=== PATIENT | male | born 1965 | race Hispanic/Latino ===

== ENCOUNTER 2018-08-07 09:48 | Emergency (ER) | payer MEDICAID, OTHER ==
[2018-08-07 09:49] VITALS: BMI 26.7
[2018-08-07 09:57] VITALS: TEMP 98.2
--- NOTE | 2018-08-07 09:58 | ED PDOC ---
Arrival/HPI - General Historian: Patient - History of Present Illness Narrative History of Present Illness (Text): 52 y/o male with PMH of HTN, chronic back pain, ventral hernia repair presents to the ED with left elbow and right shoulder pain for the past month. Pain is sharp, 9/10 at worst during the night, intermittent, partially relieved with tylenol. Patient denied trauma. 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 He dose not currently have PCP. Patient denied CP, SOB, palpitations, cough, muscle weakness, loss of sensation, extremity edema, fever, chills. 08/07/18 10:38 Time/Duration: > month Symptom Course: Worsening Quality: Aching Severity Level: 9 Activities at Onset: Significant Context: Work <Saad Hall - Last Filed: 08/07/18 11:52> <Lc Amin - Last Filed: 08/07/18 12:33> - General Chief Complaint: Upper Extremity Problem/Injury Time Seen by Provider: 08/07/18 09:51 Past Medical History - Provider Review Nursing Documentation Reviewed: Yes - Travel History Have you recently traveled outside [place] w/in the past 3 mons?: No - Infectious Disease Hx of Infectious Diseases: None - Tetanus Immunization Tetanus Immunization: Unknown - Cardiac Hx Cardiac Disorders: Yes Hx Hypertension: Yes - Pulmonary Hx Respiratory Disorders: No - Neurological Hx Neurological Disorder: No - HEENT Hx HEENT Disorder: No - Renal Hx Renal Disorder: No - Endocrine/Metabolic Hx Endocrine Disorders: No - Hematological/Oncological Hx Blood Disorders: No - Integumentary Hx Dermatological Disorder: No - Musculoskeletal/Rheumatological Hx Musculoskeletal Disorders: Yes Hx Back Pain: Yes - Gastrointestinal Hx Gastrointestinal Disorders: No - Genitourinary/Gynecological Hx Genitourinary Disorders: No - Psychiatric Hx Psychophysiologic Disorder: No Hx Substance Use: No - Surgical History Hx Appendectomy: Yes Other/Comment: ventral hernia repair - Anesthesia Hx Anesthesia: Yes Hx Anesthesia Reactions: No Hx Malignant Hyperthermia: No - Suicidal Assessment Feels Threatened In Home Enviroment: No <Saad Hall - Last Filed: 08/07/18 11:52> Family/Social History - Physician Review Nursing Documentation Reviewed: Yes Family/Social History: No Known Family HX Smoking Status: Current Some Days Smoker Hx Alcohol Use: Yes (OCCASIONAL) Hx Substance Use: Yes (marijuana) Hx Substance Use Treatment: No <Saad Hall - Last Filed: 08/07/18 11:52> Allergies/Home Meds <Saad Hall - Last Filed: 08/07/18 11:52> <Lc Amin - Last Filed: 08/07/18 12:33> Allergies/Adverse Reactions: Allergies oxycodone [From Percocet] Allergy (Verified 08/07/18 09:50) ITCHING Review of Systems - Physician Review All systems were reviewed & negative as marked: Yes - Review of Systems Constitutional: Normal. absent: Weight Change, Fevers, Night Sweats Eyes: Normal ENT: Normal Respiratory: Normal Cardiovascular: Normal Gastrointestinal: Normal Genitourinary Male: Normal Musculoskeletal: Other (left elbow/ right shoulder pain) Skin: Rash (right axillary) Neurological: Normal Endocrine: Normal Hemo/Lymphatic: Normal Psychiatric: Normal <Saad Hall - Last Filed: 08/07/18 11:52> Physical Exam Vital Signs Reviewed: Yes Vital Signs Temp Pulse Resp BP Pulse Ox 08/07/18 09:51 98.2 F 79 16 168/115 H 99 Temperature: Afebrile Blood Pressure: Hypertensive Pulse: Regular Respiratory Rate: Normal Appearance: Positive for: Well-Appearing, Non-Toxic, Comfortable Pain Distress: Moderate Mental Status: Positive for: Alert and Oriented X 3 - Systems Exam Head: Present: Atraumatic, Normocephalic Extroacular Muscles: Present: EOMI Conjunctiva: Present: Normal Ears: Present: Normal Mouth: Present: Moist Mucous Membranes Pharnyx: Present: Normal Nose (External): Present: Atraumatic Nose (Internal): Present: Normal Inspection Neck: Present: Normal Range of Motion Respiratory/Chest: Present: Clear to Auscultation, Good Air Exchange. No: Respiratory Distress, Wheezes, Rhonchi Cardiovascular: Present: Regular Rate and Rhythm, Normal S1, S2. No: Rub, Gallop Abdomen: Present: Normal Bowel Sounds. No: Tenderness, Distention Back: Present: Normal Inspection. No: Midline Tenderness Upper Extremity: Present: NORMAL PULSES, Tenderness, Neurovascularly Intact, Other (left elbow: tender to palpate lateral epicondyle, limited ROM, no edema, no erythema, no wounds. Right shoulder: limited ROM, no erythema, no edema.). No: Cyanosis, Edema, Swelling Lower Extremity: Present: Normal Inspection, Normal ROM. No: Edema Neurological: Present: GCS=15, CN II-XII Intact Skin: Present: Warm, Dry, Rashes (right axillary ) Lymphatic: No: Cervical Adenopathy, Axillary Adenopathy Psychiatric: Present: Alert, Oriented x 3, Normal Insight <Saad Hall - Last Filed: 08/07/18 11:52> Vital Signs Temp Pulse Resp BP Pulse Ox 08/07/18 09:51 98.2 F 79 16 168/115 H 99 <BrennanLc Prakash - Last Filed: 08/07/18 12:33> Medical Decision Making ED Course and Treatment: 08/07/18 10:34 Assessment: 52 y/o male presents with left elbow/right shoulder pain for one month Plan: -X-ray -toradol -pepcid -reassess/dispo <Saad Hall - Last Filed: 08/07/18 11:52> ED Course and Treatment: 08/07/18 11:27 Ian Valero is a 52 year old male who presents to the emergency department with a complaint of one month duration left elbow and right shoulder pain. In agreement with resident note, which includes further HPI details. Patient was seen and evaluated with resident, came up with plan and treatment together. On exam, FROM of elbow and shoulder without fever. BP baseline when not on medication according to chart review. - RAD Interpretation Radiology Orders: 08/07/18 10:20 ELBOW LEFT 3 VIEWS ROUTINE [RAD] Stat SHOULDER RIGHT [RAD] Stat - Medication Orders Current Medication Orders: Discontinued Medications Famotidine (Pepcid) 20 mg PO STAT STA Stop: 08/07/18 10:21 Last Admin: 08/07/18 10:32 Dose: 20 mg Ketorolac Tromethamine (Toradol) 60 mg IM STAT STA Stop: 08/07/18 10:21 Last Admin: 08/07/18 10:32 Dose: 60 mg MAR Pain Assessment Document 08/07/18 10:32 GMD (Rec: 08/07/18 10:33 GMD [facility]-20) Pain Reassessment Is this a pain reassessment? No IM Administration Charges Document 08/07/18 10:32 GMD (Rec: 08/07/18 10:33 GMD [facility] [place]-20) Injection Site MAR Injection Site Left Deltoid Charges for Administration # of IM Administrations 1 <Lc Amni - Last Filed: 08/07/18 12:33> - Scribe Statement The provider has reviewed the documentation as recorded by the Tisha Mock Provider Scribe Attestation: All medical record entries made by the Scribe were at my direction and personally dictated by me. I have reviewed the chart and agree that the record accurately reflects my personal performance of the history, physical exam, medical decision making, and the department course for this patient. I have also personally directed, reviewed, and agree with the discharge instructions and disposition. <Lc Amin - Last Filed: 08/07/18 12:33> Disposition/Present on Arrival - Present on Arrival Any Indicators Present on Arrival: No History of DVT/PE: No History of Uncontrolled Diabetes: No Urinary Catheter: No History of Decub. Ulcer: No History Surgical Site Infection Following: None - Disposition Have Diagnosis and Disposition been Completed?: Yes Disposition Time: 11:51 Patient Plan: Discharge <Saad Hall - Last Filed: 08/07/18 11:52> <BrennanLc Randall - Last Filed: 08/07/18 12:33> - Disposition Diagnosis: Shoulder pain, right, Left elbow pain Disposition: HOME/ ROUTINE Condition: STABLE Discharge Instructions (ExitCare): Lateral Epicondylitis (DC), Shoulder Pain (DC) Additional Instructions: -Follow up with PCP -Follow up with orthopedic surgery -tylenol for pain Prescriptions: Famotidine [Pepcid] 1 tab PO BID #30 tab Referrals: Harish Hickey DO [Staff Provider] - Follow up with primary Forms: [facility] (H[place]ian), WORK NOTE
[2018-08-07 11:39] VITALS: PULSE 67; RESP 18; O2SAT 96
[2018-08-07 12:13] VITALS: BP 158/110
--- NOTE | 2018-08-07 12:37 | RAD ---
Date of service: 08/07/2018 PROCEDURE: Radiographs of the Right Shoulder HISTORY: right shoulder pain COMPARISON: No prior. FINDINGS: BONES: Normal. No fracture. JOINTS: Normal. Glenohumeral and acromioclavicular joints preserved. No osteoarthritis. SOFT TISSUES: Normal. OTHER FINDINGS: None. IMPRESSION: Normal radiographs of the right shoulder.
--- NOTE | 2018-08-07 12:38 | RAD ---
Date of service: 08/07/2018 PROCEDURE: Radiographs of the left elbow. HISTORY: left elbow pain COMPARISON: No prior. FINDINGS: BONES: Normal. No fracture. JOINTS: Normal. No osteoarthritis. SOFT TISSUES: Normal. JOINT EFFUSION: None. OTHER FINDINGS: None IMPRESSION: Unremarkable radiographs of the left elbow.
== END 2018-08-07 12:15 | disposition home or self-care (01) ==
LOC: ED 09:48
DX: M25.511 Pain in right shoulder (principal); M25.522 Pain in left elbow
CPT/HCPCS: 73030; 73080; 96372; 99284; J1885

== ENCOUNTER 2018-10-29 13:18 | Outpatient (CLI) | payer MEDICAID | END 2018-10-29 13:19 | disposition home or self-care (01) | LOC: RAD 13:18 ==